=== PATIENT | male | born 1955 | race Hispanic/Latino ===

== ENCOUNTER 2017-05-24 09:42 | Inpatient (IN) | payer BC ==
[2017-05-24] MEDS ORDERED: ZOFRAN IV PRN ×2 (10:30→11:30)
[2017-05-24] MEDS ORDERED: D50W (25GM) Syringe IV PRN ×2 (10:30→10:57)
[2017-05-24] MEDS ORDERED: MILK OF MAGNESIA PO PRN ×2 (10:30→11:00)
[2017-05-24] MEDS ORDERED: ULTRAM PO PRN (10:36)
--- NOTE | 2017-05-24 10:41 | History and Physical Report ---
History of Present Illness Date of examination: 05/24/17 Date of admission: 05/24/17 09:42 History of present illness: H&P obtained from the office. Medications and Allergies Allergies Allergy/AdvReac Type Severity Reaction Status Date / Time ceftriaxone [From Rocephin] AdvReac Anaphylaxis Verified 05/24/17 10:37 methylprednisolone AdvReac Anaphylaxis Verified 05/24/17 10:37 [From Solu-Medrol] Home Medications Medication Instructions Recorded Confirmed Last Taken Type Dutasteride 0.5 mg PO QDAY 05/24/17 05/24/17 Unknown History Eszopiclone [Lunesta] 3 mg PO QDAY 05/24/17 05/24/17 Unknown History Ezetimibe/Simvastatin (Nf) 1 tab PO QHS 05/24/17 05/24/17 Unknown History [Vytorin 10-40 mg (Nf)] Finasteride [Proscar] 5 mg PO QDAY 05/24/17 05/24/17 Unknown History Losartan [Cozaar] 100 mg PO QDAY 05/24/17 05/24/17 Unknown History Metformin HCl [Glucophage] 1,000 mg PO BID 05/24/17 05/24/17 Unknown History Paroxetine HCl [Paxil Cr] 25 mg PO QDAY 05/24/17 05/24/17 Unknown History Potassium Chloride [Klor-Con M20] 20 meq PO QDAY 05/24/17 05/24/17 Unknown History Results 05/24/17 11:15 Assessment and Plan Chest pain Bradycardia Hx of CAD Hypertension Diabetes mellitus Sleep apnea noncompliant with Cpap as an outpatient Tobacco abuse normal LVEF 55% on echo 04/2017. fixed inferior defect, no ischemia 04/2017. Plan: Labs. Telemetry monitoring. Further ischemic evaluation with a cardiac cath tomorrow morning. EP consultation.
[2017-05-24] MEDS ORDERED: DULCOLAX PR PRN ×2 (11:00)
[2017-05-24] MEDS ORDERED: TYLENOL PO PRN (11:00)
[2017-05-24] MEDS ORDERED: D50W (25GM) Vial IV PRN (11:30)
[2017-05-24 11:57] LABS: INR 1.01 (0.87-1.13)
[2017-05-24 12:10] LABS: Anion Gap 22 mmol/L; BUN/Creatinine Ratio 18; Blood Urea Nitrogen 7 mg/dL (9-20); Calcium 8.9 mg/dL (8.4-10.2); Carbon Dioxide 23 mmol/L (22-30); Chloride 100.6 mmol/L (98-107); Glucose 156 mg/dL (75-100); Potassium 4.1 mmol/L (3.6-5.0); Sodium 141 mmol/L (137-145)
[2017-05-24] MEDS ORDERED: NON-FORMULARY (Losartan [Cozaar] 100 MG) PO SCH (14:00)
[2017-05-24] MEDS ORDERED: NON-FORMULARY (Eszopiclone [Lunesta] 3 MG) PO SCH (14:00)
[2017-05-24] MEDS: ULTRAM PO PRN ×2 (14:45→18:34)
[2017-05-24] MEDS: COZAAR PO SCH (14:45)
[2017-05-24] MEDS: PROSCAR PO SCH (15:51)
[2017-05-24] MEDS: PAXIL PO SCH (15:51)
[2017-05-24 16:05] LABS: Basophils % (Auto) 0.4 % (0.0-1.8); Eosinophils % (Auto) 2.7 % (0.0-4.3); Hematocrit 38.5 % (35.5-45.6); Hemoglobin 12.8 gm/dl (11.8-15.2); Mean Corpuscular HGB Conc 33 % (32-34); Mean Corpuscular Hemoglobin 29 pg (28-32); Mean Corpuscular Volume 87 fl (84-94); Platelet Count 158 K/mm3 (140-440); Red Blood Count 4.42 M/mm3 (3.65-5.03); Red Cell Distribution Width 17.9 % (13.2-15.2); White Blood Count 6.8 K/mm3 (4.5-11.0)
[2017-05-24 16:25] LABS: Creatine Kinase MB 1.2 ng/mL (0.0-4.0)
[2017-05-24 16:28] LABS: Creatine Kinase 37 units/L (55-170)
[2017-05-24] MEDS ORDERED: AMBIEN PO PRN (21:50)
[2017-05-24] MEDS: PERCOCET 5/325 PO PRN (22:18)
[2017-05-25] MEDS: ULTRAM PO PRN (02:38)
[2017-05-25 05:20] LABS: Hematocrit 38.3 % (35.5-45.6); Hemoglobin 12.5 gm/dl (11.8-15.2); Mean Corpuscular HGB Conc 33 % (32-34); Mean Corpuscular Hemoglobin 28 pg (28-32); Mean Corpuscular Volume 86 fl (84-94); Platelet Count 160 K/mm3 (140-440); Red Blood Count 4.47 M/mm3 (3.65-5.03); Red Cell Distribution Width 17.6 % (13.2-15.2); White Blood Count 6.6 K/mm3 (4.5-11.0)
[2017-05-25 05:29] LABS: INR 1.02 (0.87-1.13)
[2017-05-25 05:30] LABS: Partial Thromboplastin Time 29.7 Sec. (24.2-36.6)
[2017-05-25 05:39] LABS: BUN/Creatinine Ratio 14; Blood Urea Nitrogen 7 mg/dL (9-20); Carbon Dioxide 26 mmol/L (22-30); Glucose 111 mg/dL (75-100)
[2017-05-25 05:40] LABS: Anion Gap 18 mmol/L; Chloride 105.6 mmol/L (98-107); Potassium 4.1 mmol/L (3.6-5.0); Sodium 145 mmol/L (137-145)
[2017-05-25] MEDS: PERCOCET 5/325 PO PRN (06:36)
[2017-05-25] MEDS ORDERED: BABY ASPIRIN ONE (09:26)
[2017-05-25] MEDS ORDERED: NITROGLYCERIN SYRINGE 3 ML ONE (09:50)
[2017-05-25] MEDS ORDERED: HEPARIN/NS 5000 UNIT/500ML(CATH LAB) 1,000 ML IR ONE (09:50)
[2017-05-25] MEDS ORDERED: HEPARIN 10,000 UNITS/10 ML ONE (09:50)
[2017-05-25] MEDS ORDERED: XYLOCAINE 2% INFILTRATI ONE (09:50)
[2017-05-25] MEDS ORDERED: CALAN ONE (09:50)
[2017-05-25] MEDS ORDERED: LOVENOX SUB-Q SCH ×2 (10:00)
[2017-05-25] MEDS ORDERED: NACL 0.9% 500 ML 500 ML IV SCH (10:00)
[2017-05-25] MEDS ORDERED: K-DUR PO SCH (10:00)
[2017-05-25] MEDS ORDERED: BABY ASPIRIN PO SCH (10:00)
[2017-05-25] MEDS ORDERED: DUTASTERIDE 0.5 MG PO SCH (10:00)
[2017-05-25] MEDS: VERSED ONE ×2 (11:03→11:09)
[2017-05-25] MEDS: SUBLIMAZE ONE ×2 (11:04→11:09)
--- NOTE | 2017-05-25 11:47 | Event Note ---
Date: 05/25/17 Cardiac catheterization completed via R radial approach. No complications. Findings: 1. Mild instent restenosis RCA. 2. Otherwise coronaries are widely patent. 3. LVEF 55-60%. Recommend RF modification and medical therapy. Discharge today after EP visit for bradycardia.
--- NOTE | 2017-05-25 11:52 | Discharge Summary ---
Short Stay Discharge Plan Activity: advance as tolerated Diet: low fat, low cholesterol, low salt, diabetic Wound: keep clean and dry Special Instructions: no heavy lifting (3 days), hold Metformin (48 HRS ONLY), occupational therapy Additional Instructions: HOLD METFORMIN 48HRs Follow up with: PRIMARY CARE,MD [Primary Care Provider] - 7 Days LEANNE CORDOVA MD [Staff Physician] - 7 Days
[2017-05-25] MEDS ORDERED: NACL 0.9% 1000 ML 1,000 ML IV SCH (12:00)
--- NOTE | 2017-05-25 12:22 | Cardiac Catherization Report ---
CARDIAC CATHETERIZATION REPORT REASON FOR PROCEDURE: The patient is a 61-year-old man with history of coronary artery disease and coronary stent placement 1 year ago in [place], [place]. Recently, he underwent Holter monitoring that was found to have significant nocturnal bradycardia and pauses, attributed to sleep apnea. In addition, there has been some daytime syncope. As a result, he was recommended for cardiac catheterization. PROCEDURE: The patient was prepped and draped in a sterile fashion after informed consent. The right radial cath site was prepped and draped after a negative Madi's test. The right radial artery was entered using Seldinger technique followed by placement of a 6-[place] hydrophilic sheath. Selective left and right coronary angiography was then performed. A #3.5 left Nan was used for left coronary angiography. A #4 right Nan was used for right coronary angiography. The pigtail catheter was used for left ventricular angiography. The catheters were removed, sheath removed, and hemostasis achieved using manual compression. The patient was returned to the postprocedure unit in stable condition. There were no complications. FINDINGS: HEMODYNAMICS: Left ventricle end diastolic pressure was 25, following coronary angiography. Ascending aortic pressure was 185/87. There was no significant pressure gradient on pullback across the aortic valve. CORONARY ANGIOGRAPHY: There were separate ostia for the LAD and circumflex arteries. The LAD contained mild luminal irregularities, with no significant disease in this vessel or its diagonal branches. The circumflex artery and its obtuse marginal branches contained diffuse mild atherosclerosis. The right coronary artery was dominant. This vessel was mildly to moderately diffusely ectatic with diffuse mild atherosclerosis. A stent was visible in the proximal right coronary artery. The stented segment was patent, but contained diffuse mild in-stent restenosis, with up to 20% to 30% luminal narrowing within the mid stent. There was normal left ventricular systolic function, ejection fraction 55% to 60%. CONCLUSION: 1. Mild in-stent restenosis of the proximal right coronary artery. 2. Otherwise, no significant de samantha disease in other vessel segments. 3. Normal left ventricular systolic function, ejection fraction 55% to 60%. RECOMMENDATION: 1. Aggressive risk factor modification, including smoking cessation. 2. Medical therapy. JOB# [id number] CA/NTS
[2017-05-25] MEDS: COZAAR PO SCH (12:49)
[2017-05-25 12:50] VITALS: BP 160/80
[2017-05-25] MEDS: PROSCAR PO SCH (12:51)
[2017-05-25] MEDS: PAXIL PO SCH (12:52)
--- NOTE | 2017-05-25 13:40 | Consultation ---
History of Present Illness Consult date: 05/25/17 Consult reason: arrhythmia History of present illness: 61 YO man with h/o CAD s/p PCI, htn, DM, and untreated ZOILA who has been having recurrent episodes where he "collapses." He reports that his legs simply "give out" during these episodes but he categorically denies losing consciousness during the episodes. He has not had any chest pain, unusual dyspnea, palpitations, or dizzyness before or after these episodes. He was recently evaluated by Dr. Meeks and hooked up to 24 hour holter monitor which captured frequent conducted and non-conducted atrial ectopy, episodes of nocturnal sinus bradycardia and nocturnal ventricular pauses up to 4 seconds. No significant pauses or bradycardia were noted at times while he was awake and he did not have any episodes of "collapsing" while wearing holter monitor. He was admitted to hospital and cardiac cath revealed stable CAD with mild ISR of RCA stent. No significant michael-arrhythmias have been noted during current hospitalization. He reports he has not been sleeping much recently as his has advanced cancer. Past History Past Medical History: CAD, diabetes, hypertension, hyperlipidemia Past Surgical History: PTCA Social history: smoking Family history: CAD Medications and Allergies Allergies Allergy/AdvReac Type Severity Reaction Status Date / Time ceftriaxone [From Rocephin] AdvReac Anaphylaxis Verified 05/24/17 10:37 methylprednisolone AdvReac Anaphylaxis Verified 05/24/17 10:37 [From Solu-Medrol] Home Medications Medication Instructions Recorded Confirmed Last Taken Type Dutasteride 0.5 mg PO QDAY 05/24/17 05/24/17 Unknown History Eszopiclone [Lunesta] 3 mg PO QDAY 05/24/17 05/24/17 Unknown History Ezetimibe/Simvastatin (Nf) 1 tab PO QHS 05/24/17 05/24/17 Unknown History [Vytorin 10-40 mg (Nf)] Finasteride [Proscar] 5 mg PO QDAY 05/24/17 05/24/17 Unknown History Losartan [Cozaar] 100 mg PO QDAY 05/24/17 05/24/17 Unknown History Paroxetine HCl [Paxil Cr] 25 mg PO QDAY 05/24/17 05/24/17 Unknown History Potassium Chloride [Klor-Con M20] 20 meq PO QDAY 05/24/17 05/24/17 Unknown History Active Meds: Active Medications Acetaminophen (Tylenol) 650 mg PO Q4H PRN PRN Reason: Pain MILD(1-3)/Fever >100.5/COOPER Aspirin (Baby Aspirin) 81 mg PO QDAY [facility] Last Admin: 05/25/17 09:29 Dose: 81 mg Bisacodyl (Dulcolax) 10 mg MS QDAY PRN PRN Reason: Constipation unrelieved by MOM Dextrose (D50w (25gm) Vial) 25 gm IV PRN PRN PRN Reason: Hypoglycemia Enoxaparin Sodium (Lovenox) 40 mg SUB-Q QDAY [facility] Last Admin: 05/25/17 12:51 Dose: 40 mg Finasteride (Proscar) 5 mg PO QDAY [facility] Last Admin: 05/25/17 12:51 Dose: 5 mg Sodium Chloride (Nacl 0.9% 500 Ml) 500 mls @ 50 mls/hr IV DIRECT ARIELLA Sodium Chloride (Nacl 0.9% 1000 Ml) 1,000 mls @ 100 mls/hr IV DIRECT [facility] Stop: 05/25/17 16:59 Insulin Human Regular (Novolin R) 0 units SUB-Q ACHS [facility] PRN Reason: Protocol Last Admin: 05/25/17 13:28 Dose: Not Given Losartan Potassium (Cozaar) 100 mg PO QDAY [facility] Last Admin: 05/25/17 12:49 Dose: 100 mg Magnesium Hydroxide (Milk Of Magnesia) 30 ml PO Q4H PRN PRN Reason: Constipation Miscellaneous Medication (Dutasteride [Dutasteride]) 0.5 mg PO QDAY [facility] Miscellaneous Medication (Eszopiclone [Lunesta]) 3 mg PO QDAY [facility] Ondansetron HCl (Zofran) 4 mg IV Q8H PRN PRN Reason: Nausea And Vomiting Oxycodone/Acetaminophen (Percocet 5/325) 1 tab PO Q6H PRN PRN Reason: Pain, Moderate (4-6) Last Admin: 05/25/17 06:36 Dose: 1 tab Paroxetine HCl (Paxil) 20 mg PO QDAY [facility] Last Admin: 05/25/17 12:52 Dose: Not Given Potassium Chloride (K-Dur) 20 meq PO QDAY [facility] Last Admin: 05/25/17 12:51 Dose: 20 meq Tramadol HCl (Ultram) 50 mg PO Q4H PRN PRN Reason: Pain, Moderate (4-6) Last Admin: 05/25/17 02:38 Dose: 50 mg Zolpidem Tartrate (Ambien) 5 mg PO QHS PRN PRN Reason: Insomnia Last Admin: 05/24/17 22:19 Dose: 5 mg Review of Systems All systems: negative (per hpi) Physical Examination Vital Signs Resp 20 05/24/17 10:00 General appearance: no acute distress HEENT: Positive: PERRL, EOMI Neck: Positive: neck supple, trachea midline. Negative: JVD/HJR Cardiac: Positive: Reg Rate and Rhythm. Negative: Audible Murmur, Gallop Lungs: Positive: clear to auscultation Abdomen: Positive: Soft, Active Bowel Sounds Skin: Positive: Clear Extremities: Absent: edema Results 05/25/17 04:55 05/25/17 04:58 Cardiac Enzymes 05/24/17 Range/Units 15:26 CK-MB (CK-2) 1.2 (0.0-4.0) ng/mL Coagulation 05/25/17 Range/Units 04:57 PT 13.9 (12.2-14.9) Sec. INR 1.02 (0.87-1.13) APTT 29.7 (24.2-36.6) Sec. CBC 05/24/17 05/25/17 Range/Units 15:26 04:55 WBC 6.8 6.6 (4.5-11.0) K/mm3 RBC 4.42 4.47 (3.65-5.03) M/mm3 Hgb 12.8 12.5 (11.8-15.2) gm/dl Hct 38.5 38.3 (35.5-45.6) % Plt Count 158 160 (140-440) K/mm3 Lymph # 1.5 (1.2-5.4) K/mm3 [place] # 0.9 H (0.0-0.8) K/mm3 Eos # 0.2 (0.0-0.4) K/mm3 Baso # 0.0 (0.0-0.1) K/mm3 Comprehensive Metabolic Panel 05/25/17 Range/Units 04:58 Sodium 145 (137-145) mmol/L Potassium 4.1 (3.6-5.0) mmol/L Chloride 105.6 (98-107) mmol/L Carbon Dioxide 26 (22-30) mmol/L BUN 7 L (9-20) mg/dL Creatinine 0.5 L (0.8-1.5) mg/dL Glucose 111 H (75-100) mg/dL Calcium 9.0 (8.4-10.2) mg/dL Assessment and Plan 1. Episodes of loss of postural tone without loosing consciousness: Not consistent with syncope. 2. Stable CAD based on coronary angiogram 3. Frequent atrial ectopy, nocturnal sinus bradycardia and pauses 4. Untreated sleep apnea 5. DM 6. Htn Recommend: 1. Outpatient event monitor to better correlate his heart rhythm with episodes where he collapses 2. Treat sleep apnea - patient extensively counseled and he will f/u with sleep specialist.
== END 2017-05-25 15:15 | disposition home or self-care (01) | DRG 287 ==
LOC: UNDOADMIN 09:42 → 4A 09:42
PROVIDERS: ADMIT Internal Medicine Cardiovascular Disease; ATTEND Internal Medicine Cardiovascular Disease
PROC: 4A023N7 Measurement of Cardiac Sampling and Pressure, Left Heart, Percutaneous Approach (ICD-10-PCS; principal; 2017-05-25)
PROC: B2111ZZ Fluoroscopy of Multiple Coronary Arteries using Low Osmolar Contrast (ICD-10-PCS; 2017-05-25)
PROC: B2151ZZ Fluoroscopy of Left Heart using Low Osmolar Contrast (ICD-10-PCS; 2017-05-25)
DX: T82.855A Stenosis of coronary artery stent, initial encounter (principal); I10 Essential (primary) hypertension; E11.9 Type 2 diabetes mellitus without complications; I25.10 Atherosclerotic heart disease of native coronary artery without angina pectoris; E78.5 Hyperlipidemia, unspecified; F17.200 Nicotine dependence, unspecified, uncomplicated; G47.33 Obstructive sleep apnea (adult) (pediatric); I49.1 Atrial premature depolarization; R94.31 Abnormal electrocardiogram [ECG] [EKG]; Y83.8 Other surgical procedures as the cause of abnormal reaction of the patient, or of later complication, without mention of misadventure at the time of the procedure; Z71.6 Tobacco abuse counseling; Z82.49 Family history of ischemic heart disease and other diseases of the circulatory system; Z79.899 Other long term (current) drug therapy; Z91.19 Patient's noncompliance with other medical treatment and regimen; Z99.81 Dependence on supplemental oxygen; Z95.5 Presence of coronary angioplasty implant and graft; Y92.89 Other specified places as the place of occurrence of the external cause
CPT/HCPCS: 36415; 80048; 82550; 82553; 82962; 83735; 84443; 84484; 85025; 85027; 85610; 85730; 93005; 93010; 93458; C1894; J1644; J1650; J1815; J2250; J3010; J7040; Q9967